=== PATIENT | female | born 1990 | race Asian ===

== ENCOUNTER 2023-09-08 01:56 | Inpatient (IN) ==
[2023-09-08] MEDS ORDERED: LIDOCAINE 1% LOCAL 20 ML VIAL INFIL PRN (02:41)
[2023-09-08] MEDS ORDERED: CALCIUM CARBONATE 500 MG CHEWABLE TAB PO PRN (02:41)
[2023-09-08] MEDS ORDERED: ACETAMINOPHEN 500 MG TAB PO PRN (02:41)
--- NOTE | 2023-09-08 02:45 | History & Physical Report ---
Date of Service September 08, 2023 Assessment & Plan (1) Supervision of normal first : (2) SROM (spontaneous rupture of membranes): Plan 33-year-old G1, P0 currently at 38 weeks 0 days gestational age presents with spontaneous rupture of membranes. Noted to be grossly ruptured on exam. 1. Fetus: Category 1 tracing 2. Labor: Grossly ruptured on exam. Desiring time for spontaneous labor. Will start oxytocin at approximately 6 hours post rupture if not clearly in labor. 3. GBS negative 4. Vitals within normal limits History of Present Illness Primary Care Provider: NO PCP 33-year-old G1, P0 currently at 38 weeks 0 days gestational age presents with leakage of fluid. Reports 2 gushes of watery type fluid with continuous nonstop watery discharge occurring. Patient noted to be grossly ruptured on exam. Denying regular or painful contractions. No vaginal bleeding and noting good movement. has been uncomplicated to date. OB Labs: Blood Type A Positive 02/02/23 Antibody Screen NEGATIVE 02/02/23 Hemoglobin 11.3 g/dl (12.0-16.0) L 06/30/23 Hematocrit 33.1 % (37.0-47.0) L 06/30/23 Mean Corpuscular Volume 83.2 fL (80.0-100.0) 02/02/23 Platelet Count 352 K/uL (130-400) 02/02/23 Rubella IgG Antibody Non Immune (Immune) L 02/02/23 Rapid Plasma Reagin Nonreactive (Nonreactive) 02/02/23 Hepatitis B Surface Antigen. NON-REACTIVE (NON-REACTIVE) 02/02/23 Hepatitis C Antibody (EIA) NON-REACTIVE (NON-REACTIVE) 02/02/23 HIV (1&2) Ag and Ab Confirmation NON-REACTIVE (NON-REACTIVE) 02/02/23 Glucose 1 Hour 50 gm Load 172 mg/dl (70-130) H 04/08/23 Maternal Serum Alpha Fetoprotein 24.8 ng/mL 04/08/23 OB Optional Labs: Chlamydia trachomatis RNA Not Detected (NotDetected) 02/02/23 Neisseria gonorrhoeae RNA Not Detected (NotDetected) 02/02/23 Alpha Fetoprotein Triple Screen SEE NOTE 04/08/23 Labs Reviewed: low risk cfdna - sln horizon 14 - sln neg afp - sln passed 2 hr gtt x 2--akh Allergies Allergy/AdvReac Type Severity Reaction Status Date / Time No Known Allergies Allergy Verified 09/02/23 11:04 Home Medications Medication Instructions Recorded Confirmed Type 21-iron fu-folic acid 1 tab PO DAILY 01/29/23 09/08/23 History [ Complete] Patient History Medical History (Updated 09/08/23 @ 07:28 by Ugo Johnson MD) Patient denies significant medical history Surgical History S/P LASIK surgery Family History (Updated 01/29/23 @ 14:06 by Anupama Lynn) Aunt Breast cancer Denies family history of Ovarian cancer Colorectal cancer Social History (Updated 01/29/23 @ 14:07 by Anupama Lynn) Smoking Status: Never smoker Do You Dip or Chew Tobacco: No; Hx Alcohol Use: No Hx Substance Use: No Preferred Language: Bengali Puffer Tender Required: No Beliefs That Will Affect Care: None marital status: marital status details: Rhoda Ahumada(34) [phone] Current Living Situation: Spouse Current Living Situation Comment: lives with spouse, dog current occupational status: employed current occupation: [employer] Other Information That Helps Us Care for You: No Physical Exam Genitourinary: Manual OB Exam: + cervical dilation 1 cm, + cervical effacement (T), + station high and + amniotic fluid (Grossly ruptured) clear OB Exam Monitor Tracing: + external FHT monitor used, + external uterine monitor used and + category I; no normal FHT variability, no early decelerations present, no late decelerations present and no variable decelerations Exam per nurse Results & Data Vital Signs (Past 12 Hours) Vital Signs Temp Pulse Resp BP 09/08/23 02:14 37.5 C 18 09/08/23 02:10 81 139/75 Coding Level of Care Code None Diagnoses Encounter for supervision of normal first in third trimester Z34.03 Trimester: third trimester SROM (spontaneous rupture of membranes) (1) Supervision of normal first Trimester: third trimester Qualified Code(s): Z34.03 - Encounter for supervision of normal first , third trimester
[2023-09-08 03:17] LABS: Hematocrit (blood only) 34.4 % (37.0-47.0); Hemoglobin 12.1 g/dl (12.0-16.0); Mean Corpuscular Hemoglobin 29.9 pg (25.0-34.0); Mean Corpuscular Hgb Conc 35.2 g/dL (32.0-36.0); Mean Corpuscular Volume 84.9 fL (80.0-100.0); Mean Platelet Volume 10.1 fL (9.4-12.4); Platelet Count 206 K/uL (130-400); RDW Coefficient of Variation 13.5 % (11.5-14.5); RDW Standard Deviation 41.8 fL (36.4-46.3); Red Blood Count 4.05 M/uL (4.20-5.40); White Blood Count 10.54 K/ul (4.8-10.8)
[2023-09-08] MEDS: OXYTOCIN 30 UNITS/NSS 30 UNITS/500 ML BAG IV PRN ×2 (07:45→21:07)
[2023-09-08] MEDS: LACTATED RINGER'S 1,000 ML IV PRN (07:45)
--- NOTE | 2023-09-08 09:01 | Communication Note ---
Date of Service: September 08, 2023 coming onto call. met pt and she is aware i am taking over care. fhts categ 1. pitocin recently started and pt still comfortable, ctx q4 min. pt denies ?s or concerns at this time.
[2023-09-08] MEDS ORDERED: NALOXONE HCL 1 MG in SODIUM CHLORIDE 0.9% 1,000 ML IV PRN (12:43)
[2023-09-08] MEDS ORDERED: diphenhydrAMINE 50 MG/ML VIAL IV PRN (12:43)
[2023-09-08] MEDS ORDERED: ROPIVACAINE 0.5% PF 5 MG/ML 20 ML VIAL EPI PRN (12:43)
[2023-09-08] MEDS ORDERED: fentaNYL citrate PF 100 MCG/2 ML VIAL EPI PRN (12:43)
[2023-09-08] MEDS ORDERED: NALOXONE HCL 0.4 MG/1 ML VIAL/CARP IV PRN (12:43)
[2023-09-08] MEDS ORDERED: LIDOCAINE 2% MPF LOCAL 5 ML VIAL EPI PRN (12:43)
[2023-09-08] MEDS ORDERED: SODIUM CHLORIDE 0.9% PF INJ 10 ML VIAL EPI PRN (12:43)
[2023-09-08] MEDS ORDERED: BUPIVACAINE 0.25% PF 30 ML VIAL EPI PRN (12:43)
[2023-09-08] MEDS ORDERED: ePHEDrine sulfate 50 MG/ML AMP IV PRN (12:43)
[2023-09-08] MEDS ORDERED: ONDANSETRON INJ 2 MG/ML 2 ML VIAL IV PRN (12:43)
[2023-09-08] MEDS ORDERED: NALBUPHINE HCL 5 MG in SYRINGE 0 ML IV PRN (12:43)
[2023-09-08] MEDS: BUPIVACAINE 0.25% PF 30 ML VIAL ONE (13:14)
[2023-09-08] MEDS: fentaNYL citrate PF 100 MCG/2 ML VIAL ONE (13:14)
[2023-09-08] MEDS: LIDOCAINE 2%/EPINEPHRINE 1:200,000 20 ML PF ONE (13:15)
[2023-09-08] MEDS: fentANYL 2 MCG/ML BUPIVacaine 0.125%-NSS 100ML BAG ONE (13:16)
[2023-09-08] MEDS: SODIUM CHLORIDE 0.9% PF INJ 10 ML VIAL ONE (13:17)
[2023-09-08] MEDS: SODIUM CHLORIDE 0.9% PF INJ 10 ML VIAL EPI STA (13:36)
[2023-09-08] MEDS: BUPIVACAINE 0.25% PF 30 ML VIAL EPI STA (13:36)
[2023-09-08] MEDS: LIDOCAINE 2%/EPINEPHRINE 1:200,000 20 ML PF EPI STA (13:36)
[2023-09-08] MEDS: fentaNYL citrate PF 100 MCG/2 ML VIAL EPI STA (13:36)
[2023-09-08] MEDS: ePHEDrine sulfate 50 MG/ML AMP ONE (15:03)
--- NOTE | 2023-09-08 15:43 | Labor Progress Brief Note ---
Date of Service September 08, 2023 Subjective pt comfortable with epidural and pit at 12 Assessment & Plan (1) Encounter for induction of labor: (2) PROM (premature rupture of membranes): Plan Patient making progress in latent phase. c/w pitocin. perhaps arom forebag will help with cephalic more against cx now. will reeval ongoing. fhts categ 1. Admission and Anticipated Discharge Date Admission Date: September 08, 2023 Physical Exam Constitutional: WD/WN, vitals as above Genitourinary: Manual OB Exam: + cervical dilation (3), + cervical effacement 80%, + station -2 and + amniotic fluid (arom forebag, cephalic more against cx. ) clear OB Exam Monitor Tracing: + external FHT monitor used, + external uterine monitor used (q2-3 ), + category I and + normal FHT variability Results & Data Vital Signs (Past 12 Hours) Vital Signs Temp Pulse Resp BP Pulse Ox 09/08/23 15:38 73 134/80 09/08/23 15:34 76 97 09/08/23 15:29 82 96 09/08/23 15:24 79 96 09/08/23 15:22 75 20 130/83 09/08/23 15:19 78 96 09/08/23 15:14 80 97 09/08/23 15:09 96 09/08/23 15:09 75 09/08/23 15:09 75 131/85 09/08/23 15:04 80 96 09/08/23 15:00 18 09/08/23 15:00 98.2 F 18 09/08/23 14:59 76 97 09/08/23 14:54 77 98 09/08/23 14:49 72 96 09/08/23 14:48 71 130/75 09/08/23 14:44 70 96 09/08/23 14:43 68 126/71 09/08/23 14:39 73 96 09/08/23 14:37 73 130/84 09/08/23 14:34 73 97 09/08/23 14:32 70 127/76 09/08/23 14:30 16 09/08/23 14:30 16 09/08/23 14:29 73 96 09/08/23 14:28 75 128/75 09/08/23 14:24 72 96 09/08/23 14:23 68 128/76 06 14:19 72 129/76 97 09/08/23 14:15 20 09/08/23 14:15 20 09/08/23 14:14 74 97 09/08/23 14:12 73 127/80 09/08/23 14:09 75 97 09/08/23 14:07 75 128/81 06 14:04 70 98 09/08/23 14:02 72 129/81 09/08/23 14:00 18 09/08/23 14:00 18 09/08/23 13:59 71 97 09/08/23 13:58 68 127/77 09/08/23 13:54 74 97 09/08/23 13:53 71 126/76 09/08/23 13:49 98 09/08/23 13:49 70 09/08/23 13:49 70 124/74 09/08/23 13:45 16 09/08/23 13:44 70 98 09/08/23 13:43 72 131/73 09/08/23 13:39 74 97 09/08/23 13:38 74 121/71 09/08/23 13:34 75 97 09/08/23 13:33 74 127/68 09/08/23 13:30 18 09/08/23 13:30 18 09/08/23 13:29 97 09/08/23 13:29 76 09/08/23 13:29 80 126/71 09/08/23 13:24 78 97 09/08/23 13:22 80 125/67 09/08/23 13:20 78 124/66 09/08/23 13:19 75 97 06 13:18 80 125/63 09/08/23 13:16 80 128/64 09/08/23 13:15 18 09/08/23 13:15 18 09/08/23 13:14 83 130/67 98 09/08/23 13:12 84 131/64 09/08/23 13:11 78 140/70 09/08/23 13:10 98.2 F 09/08/23 13:09 83 98 09/08/23 13:04 77 98 09/08/23 12:46 73 127/78 09/08/23 11:47 74 129/77 09/08/23 11:00 18 06/05/24 11:00 98.6 F 18 09/08/23 10:46 78 121/74 09/08/23 09:46 74 129/75 09/08/23 09:00 98.4 F 09/08/23 08:46 79 128/81 09/08/23 07:46 88 143/85 H 09/08/23 07:00 98.6 F 18 09/08/23 07:00 83 121/63 09/08/23 05:41 76 111/64 09/08/23 05:40 18 09/08/23 05:40 98.8 F 18 Coding Level of Care Code None Diagnoses Encounter for induction of labor Z34.90 PROM (premature rupture of membranes) O42.90
--- NOTE | 2023-09-08 18:08 | Labor Progress Brief Note ---
Date of Service September 08, 2023 Subjective resting, no pain, pit at 12 Assessment & Plan (1) PROM (premature rupture of membranes): (2) Encounter for induction of labor: Plan great cx change. anticip 2nd stage soon. fhts categ 1. Admission and Anticipated Discharge Date Admission Date: September 08, 2023 Physical Exam Constitutional: WD/WN, vitals as above Genitourinary: Manual OB Exam: + cervical dilation (rim), + cervical effac ement 100% and + station + 1 OB Exam Monitor Tracing: + external FHT monitor used, + external uterine monitor used (q2 ), + category I and + normal FHT variability Results & Data Vital Signs (Past 12 Hours) Vital Signs Temp Pulse Resp BP Pulse Ox 09/08/23 18:04 85 96 09/08/23 17:59 79 94 09/08/23 17:54 84 94 09/08/23 17:52 81 133/74 09/08/23 17:49 82 95 09/08/23 17:44 82 95 09/08/23 17:39 81 95 09/08/23 17:38 76 20 136/74 09/08/23 17:34 81 95 09/08/23 17:29 81 94 09/08/23 17:24 84 95 09/08/23 17:23 78 20 129/75 09/08/23 17:19 89 96 09/08/23 17:14 90 95 09/08/23 17:09 78 95 09/08/23 17:07 75 128/71 09/08/23 17:04 84 96 09/08/23 17:00 20 09/08/23 17:00 98.8 F 20 09/08/23 16:59 79 94 09/08/23 16:55 79 94 09/08/23 16:54 78 95 09/08/23 16:52 74 124/71 09/08/23 16:50 76 94 09/08/23 16:49 77 95 09/08/23 16:44 77 96 09/08/23 16:39 79 96 09/08/23 16:38 80 137/75 09/08/23 16:34 76 95 09/08/23 16:31 78 94 09/08/23 16:29 83 95 09/08/23 16:24 79 95 09/08/23 16:23 76 151/88 H 06/05/24 16:20 76 94 06 16:19 79 95 09/08/23 16:14 80 95 09/08/23 16:09 75 95 09/08/23 16:08 76 131/74 06 16:04 77 96 09/08/23 15:59 78 96 06 15:54 76 96 09/08/23 15:53 74 20 131/78 09/08/23 15:49 75 96 09/08/23 15:44 75 96 06 15:39 75 96 09/08/23 15:38 73 134/80 09/08/23 15:34 76 97 09/08/23 15:29 82 96 09/08/23 15:24 79 96 09/08/23 15:22 75 20 130/83 09/08/23 15:19 78 96 09/08/23 15:14 80 97 09/08/23 15:09 96 09/08/23 15:09 75 09/08/23 15:09 75 131/85 09/08/23 15:04 80 96 06 15:00 18 09/08/23 15:00 98.2 F 18 09/08/23 14:59 76 97 09/08/23 14:54 77 98 09/08/23 14:49 72 96 09/08/23 14:48 71 130/75 09/08/23 14:44 70 96 09/08/23 14:43 68 126/71 09/08/23 14:39 73 96 09/08/23 14:37 73 130/84 09/08/23 14:34 73 97 06 14:32 70 127/76 09/08/23 14:30 16 09/08/23 14:30 16 09/08/23 14:29 73 96 09/08/23 14:28 75 128/75 09/08/23 14:24 72 96 09/08/23 14:23 68 128/76 09/08/23 14:19 72 129/76 97 09/08/23 14:15 20 09/08/23 14:15 20 09/08/23 14:14 74 97 06 14:12 73 127/80 09/08/23 14:09 75 97 09/08/23 14:07 75 128/81 06/08/26 14:04 70 98 09/08/23 14:02 72 129/81 06 14:00 18 09/08/23 14:00 18 09/08/23 13:59 71 97 09/08/23 13:58 68 127/77 09/08/23 13:54 74 97 09/08/23 13:53 71 126/76 09/08/23 13:49 98 09/08/23 13:49 70 06 13:49 70 124/74 09/08/23 13:45 16 09/08/23 13:44 70 98 09/08/23 13:43 72 131/73 09/08/23 13:39 74 97 09/08/23 13:38 74 121/71 09/08/23 13:34 75 97 09/08/23 13:33 74 127/68 09/08/23 13:30 18 09/08/23 13:30 18 09/08/23 13:29 97 09/08/23 13:29 76 06 13:29 80 126/71 09/08/23 13:24 78 97 06 13:22 80 125/67 09/08/23 13:20 78 124/66 09/08/23 13:19 75 97 09/08/23 13:18 80 125/63 09/08/23 13:16 80 128/64 09/08/23 13:15 18 09/08/23 13:15 18 09/08/23 13:14 83 130/67 98 09/08/23 13:12 84 131/64 09/08/23 13:11 78 140/70 09/08/23 13:10 98.2 F 09/08/23 13:09 83 98 09/08/23 13:04 77 98 0605 12:46 73 127/78 09/08/23 11:47 74 129/77 09/08/23 11:00 18 09/08/23 11:00 98.6 F 18 09/08/23 10:46 78 121/74 0605 09:46 74 129/75 09/08/23 09:00 98.4 F 09/08/23 08:46 79 128/81 06 07:46 88 143/85 H 09/08/23 07:00 98.6 F 18 09/08/23 07:00 83 121/63 Coding Level of Care Code None Diagnoses PROM (premature rupture of membranes) O42.90 Encounter for induction of labor Z34.90
[2023-09-08] MEDS: fentANYL 2 MCG/ML BUPIVacaine 0.125%-NSS 100ML BAG EPI PRN (19:30)
[2023-09-08] MEDS: miSOPROStoL 200 MCG TAB PR ONE (20:46)
[2023-09-08] MEDS: CARBOPROST TROMETHAMINE 250 MCG/ML AMPUL IM ONE ×2 (20:48→21:03)
--- NOTE | 2023-09-08 21:17 | Delivery Summary ---
Vaginal Delivery Summary Date of Service September 08, 2023 Vaginal Delivery Summary The patient dilated to complete and pushed to deliver a viable female Apgars 8 and 9 via over intact perineum. Mouth and nose bulb suctioned at perineum. Shoulders and body delivered with ease. Infant was vigorous and crying at . Cord clamped at 40 seconds of life and infant to maternal abdomen where the cord was then doubly clamped and cut. Placenta delivered spontaneously and intact, three-vessel cord. Hemostasis not achieved with dilute pitocin and uterine massage and drainage of the bladder for approximately 200 cc under sterile conditions. Uterus swept x 2, no retained products. Cytotec 800mcg per rectum. BP checked, and IM hemabate given. Uterine tone improving. IM hemabate repeated in 15min. Bleeding improving. Laceration of vagina reapproximated with 3-0 vicryl and periclitoral laceration reapproximated with 4-0 vicryl. Hemostasis of repaired lacerations noted. Cervix and sulci intact. QBL 1085 cc. Mother and baby stable in recovery. Will plan 3 doses antibiotics due to uterine exploration and explained all to pt and partner. They deny questions. [facility] Vaginal Delivery Charge Delivery Type Details:
[2023-09-08] MEDS ORDERED: HYDROCORTISONE ACETATE 25 MG SUPP PR PRN (21:34)
[2023-09-08] MEDS ORDERED: oxyCODONE/ACETAMINOPHEN 5mg/325mg TAB PO PRN (21:34)
[2023-09-08] MEDS ORDERED: bisacodyL 10 MG SUPP PR PRN (21:34)
[2023-09-08] MEDS ORDERED: OXYTOCIN 30 UNITS/NSS 30 UNITS/500 ML BAG IV PRN (21:34)
[2023-09-08] MEDS ORDERED: ACETAMINOPHEN 325 MG TAB PO PRN (21:34)
[2023-09-08] MEDS: DIPHTHER/TETAN/PERTUS Vaccine (Tdap, Adol/Adult) 0.5mL IM ONE (21:37)
[2023-09-08] MEDS: OXYTOCIN 20 UNITS/LR 1,002 ML IV SCH (21:45)
[2023-09-08] MEDS: ceFAZolin 2000MG 2,000 MG/15 ML SYR IV SCH (22:12)
[2023-09-08] MEDS: BENZOCAINE 20% SPRY 85 APPLN/85 GM CAN EXT PRN (23:09)
--- NOTE | 2023-09-09 06:09 | Obstetrical Progress Note ---
Date of Service September 09, 2023 Assessment & Plan (1) Encounter for care and examination after delivery: Plan 33 yo post- day 1 s/p Doing well this morning Vital signs reviewed Rubella non immune, will give MMR BGT: A + Encourage breast feeding Continue post care Admission and Anticipated Discharge Date Admission Date: September 08, 2023 Supervising Physician Co-Signing Physician Notes Resident Physician Supervision Note: I was present with Dr. Caceres during the history and exam. I discussed the case with the resident and agree with the findings and plan as documented in the note. Any exceptions or clarifications are listed here: pt doing well, eating, voiding, ambulating, lochia small. abd soft ff 2 down nt, ext nt calves. ppd#1 s/p , with pph, hgb pending. no evidence of ongoing bleeding. routine pp care. mmr ordered. bottle feeding, but plans to try to nurse. Documented By: Berenice Greer MD, FACOG Subjective 33 yo post- day 1 s/p Ambulation: ambulating normally Voiding: no voiding problems Passing Gas:: Yes Diet Tolerance:: regular diet Lochia:: Small Feeding Type: bottle feeding Current Pain Level: moderate Resting comfortably this AM in NAD. Denies MARADIAGA, CP, SOB, N/V/D, LE pain/swelling. Review of Systems Review of Systems: as per HPI Physical Exam Physical Exam: General: patient resting comfortably, NAD, non-toxic in appearance, AA&O x 4, answers questions appropriately. Heart: +S1/S2, regular, no m/r/g Lungs: equal air entry bilaterally, no rales/rhonchi/wheezes Abd: +BS, soft, NT/ND, uterine fundus firm at umbilicus Ext: warm, no edema Neuro: nonfocal, patient AA&O x 4, speech intact, no facial droop, moving all extremities on command. Results & Data Vital Signs (Past 12 Hours) Vital Signs Temp Pulse Pulse Resp BP BP Pulse Ox 09/09/23 04:00 36.8 C 94 H 16 117/77 99 09/09/23 00:40 36.8 C 96 H 16 114/70 99 09/09/23 00:10 18 09/08/23 23:57 103 H 130/78 06/0524 23:54 103 H 98 06/0524 23:52 100 H 128/82 06/0524 23:49 105 H 97 05 23:47 97 H 130/78 0605 23:44 101 H 97 09/08/23 23:42 100 H 134/82 06/0524 23:39 107 H 97 /08/26 23:37 102 H 127/73 06/0524 23:34 103 H 97 06/05 23:32 94 H 127/77 06/0524 23:29 102 H 97 06/05 23:27 101 H 132/82 06/0524 23:24 100 H 97 06/05 23:22 96 H 131/83 /05 23:19 104 H 97 09/08/23 23:17 100 H 127/82 /05 23:14 105 H 96 05 23:12 100 H 123/81 0605 23:09 105 H 97 05 23:07 99 H 129/85 06/05 23:05 18 09/08/23 23:04 109 H 97 05 23:02 102 H 124/84 05 22:59 107 H 97 09/08/23 22:57 107 H 131/82 06/05 22:54 108 H 98 /08/26 22:52 98 H 126/81 /0524 22:49 112 H 97 06/05 22:47 117 H 118/85 06/05 22:44 111 H 97 06/0524 22:42 112 H 122/86 /05 22:39 106 H 97 06/0524 22:37 106 H 115/81 06/0524 22:35 18 09/08/23 22:34 111 H 97 /0524 22:32 115 H 128/83 06/0524 22:29 119 H 96 06/0524 22:27 117 H 139/97 06/0524 22:24 123 H 97 06/0524 22:22 122 H 134/93 06/0524 22:19 116 H 97 06/05 22:17 105 H 125/84 06/05/24 22:14 115 H 96 09/08/23 22:12 117 H 119/81 09/08/23 22:09 119 H 98 09/08/23 22:07 112 H 123/81 09/08/23 22:05 18 09/08/23 22:04 119 H 97 09/08/23 22:02 118 H 120/78 09/08/23 21:59 125 H 96 09/08/23 21:57 129 H 124/77 09/08/23 21:55 125 H 121/73 09/08/23 21:54 123 H 96 09/08/23 21:50 18 09/08/23 21:49 132 H 97 09/08/23 21:47 129 H 125/69 09/08/23 21:44 130 H 96 09/08/23 21:42 129 H 133/83 09/08/23 21:39 122 H 96 09/08/23 21:37 116 H 135/86 09/08/23 21:35 18 09/08/23 21:34 115 H 96 09/08/23 21:33 126 H 137/84 09/08/23 21:29 126 H 95 09/08/23 21:27 129 H 132/85 09/08/23 21:24 121 H 97 09/08/23 21:22 116 H 131/85 09/08/23 21:20 18 09/08/23 21:19 119 H 96 09/08/23 21:17 117 H 125/80 09/08/23 21:14 119 H 96 09/08/23 21:12 120 H 122/77 09/08/23 21:09 123 H 97 09/08/23 21:07 120 H 121/78 09/08/23 21:05 36.8 C 18 09/08/23 21:04 94 09/08/23 21:04 105 H 09/08/23 21:04 110 H 126/90 09/08/23 21:02 110 H 127/68 09/08/23 20:59 113 H 96 09/08/23 20:54 116 H 96 09/08/23 20:52 122 H 135/65 09/08/23 20:49 126 H 97 09/08/23 20:46 129 H 130/74 09/08/23 20:44 123 H 96 06/05/24 20:39 118 H 97 09/08/23 20:34 112 H 97 09/08/23 20:29 110 H 97 09/08/23 20:24 95 H 93 09/08/23 20:23 88 144/84 H 09/08/23 20:20 18 09/08/23 20:20 18 09/08/23 20:19 86 96 09/08/23 20:14 79 96 09/08/23 20:13 80 89 L 09/08/23 20:09 81 96 09/08/23 20:08 75 90 09/08/23 20:07 72 134/71 09/08/23 20:04 82 96 09/08/23 20:01 79 90 09/08/23 20:00 18 09/08/23 20:00 18 09/08/23 19:59 81 93 09/08/23 19:54 95 09/08/23 19:54 79 09/08/23 19:54 74 90 09/08/23 19:52 77 138/75 09/08/23 19:49 83 94 09/08/23 19:44 79 95 09/08/23 19:42 76 89 L 09/08/23 19:39 82 97 09/08/23 19:37 78 135/80 09/08/23 19:36 79 89 L 09/08/23 19:34 79 89 L 09/08/23 19:30 77 18 89 L 09/08/23 19:29 77 90 09/08/23 19:24 82 96 09/08/23 19:23 76 140/81 09/08/23 19:21 81 91 09/08/23 19:19 79 97 09/08/23 19:16 79 91 09/08/23 19:14 79 96 09/08/23 19:09 84 97 09/08/23 19:08 77 141/79 H 09/08/23 19:06 83 90 09/08/23 19:05 18 09/08/23 19:05 37.1 C 18 09/08/23 19:04 79 95 09/08/23 19:02 37.1 C 18 09/08/23 19:02 09/08/23 18:59 78 94 09/08/23 18:54 84 99 09/08/23 18:52 81 154/77 H 09/08/23 18:49 81 99 09/08/23 18:44 82 96 09/08/23 18:43 78 152/81 H 91 09/08/23 18:42 83 176/90 H 09/08/23 18:39 83 98 09/08/23 18:38 81 166/89 H 09/08/23 18:34 79 98 09/08/23 18:30 20 09/08/23 18:30 20 09/08/23 18:29 83 96 09/08/23 18:24 89 96 09/08/23 18:23 82 162/96 H 09/08/23 18:19 82 96 09/08/23 18:14 85 96 09/08/23 18:09 85 158/89 H 97 09/08/23 18:08 86 162/95 H O2 Del Method 09/09/23 04:00 Room Air 09/09/23 00:40 Room Air 09/09/23 00:10 09/08/23 23:57 09/08/23 23:54 09/08/23 23:52 09/08/23 23:49 09/08/23 23:47 09/08/23 23:44 09/08/23 23:42 09/08/23 23:39 09/08/23 23:37 09/08/23 23:34 09/08/23 23:32 09/08/23 23:29 09/08/23 23:27 09/08/23 23:24 09/08/23 23:22 09/08/23 23:19 09/08/23 23:17 09/08/23 23:14 09/08/23 23:12 09/08/23 23:09 09/08/23 23:07 09/08/23 23:05 09/08/23 23:04 09/08/23 23:02 09/08/23 22:59 09/08/23 22:57 09/08/23 22:54 09/08/23 22:52 09/08/23 22:49 09/08/23 22:47 09/08/23 22:44 09/08/23 22:42 09/08/23 22:39 09/08/23 22:37 09/08/23 22:35 09/08/23 22:34 09/08/23 22:32 09/08/23 22:29 09/08/23 22:27 09/08/23 22:24 09/08/23 22:22 09/08/23 22:19 09/08/23 22:17 09/08/23 22:14 09/08/23 22:12 09/08/23 22:09 09/08/23 22:07 09/08/23 22:05 09/08/23 22:04 09/08/23 22:02 09/08/23 21:59 09/08/23 21:57 09/08/23 21:55 09/08/23 21:54 09/08/23 21:50 09/08/23 21:49 09/08/23 21:47 09/08/23 21:44 09/08/23 21:42 09/08/23 21:39 09/08/23 21:37 09/08/23 21:35 09/08/23 21:34 09/08/23 21:33 09/08/23 21:29 09/08/23 21:27 09/08/23 21:24 09/08/23 21:22 09/08/23 21:20 09/08/23 21:19 09/08/23 21:17 09/08/23 21:14 09/08/23 21:12 09/08/23 21:09 09/08/23 21:07 09/08/23 21:05 09/08/23 21:04 09/08/23 21:04 09/08/23 21:04 09/08/23 21:02 09/08/23 20:59 09/08/23 20:54 09/08/23 20:52 09/08/23 20:49 09/08/23 20:46 09/08/23 20:44 09/08/23 20:39 09/08/23 20:34 09/08/23 20:29 09/08/23 20:24 09/08/23 20:23 09/08/23 20:20 09/08/23 20:20 09/08/23 20:19 09/08/23 20:14 09/08/23 20:13 09/08/23 20:09 09/08/23 20:08 09/08/23 20:07 09/08/23 20:04 09/08/23 20:01 09/08/23 20:00 09/08/23 20:00 09/08/23 19:59 09/08/23 19:54 09/08/23 19:54 09/08/23 19:54 09/08/23 19:52 09/08/23 19:49 09/08/23 19:44 09/08/23 19:42 09/08/23 19:39 09/08/23 19:37 09/08/23 19:36 09/08/23 19:34 09/08/23 19:30 09/08/23 19:29 09/08/23 19:24 09/08/23 19:23 09/08/23 19:21 09/08/23 19:19 09/08/23 19:16 09/08/23 19:14 09/08/23 19:09 09/08/23 19:08 09/08/23 19:06 09/08/23 19:05 09/08/23 19:05 09/08/23 19:04 09/08/23 19:02 09/08/23 19:02 Room Air 09/08/23 18:59 09/08/23 18:54 09/08/23 18:52 09/08/23 18:49 09/08/23 18:44 09/08/23 18:43 09/08/23 18:42 09/08/23 18:39 09/08/23 18:38 09/08/23 18:34 09/08/23 18:30 09/08/23 18:30 09/08/23 18:29 09/08/23 18:24 09/08/23 18:23 09/08/23 18:19 09/08/23 18:14 09/08/23 18:09 09/08/23 18:08 Resident Activity Tracking Resident Involvement: Resident Care Provided Care Provided: OB Delivery
--- NOTE | 2023-09-09 07:37 | Anesthesia Procedure Note ---
Date of Service September 09, 2023 Anesthesia Post Epidural Note Vital Signs Vital Signs: Temp Pulse Resp BP Pulse Ox O2 Del Method 98.2 F 94 H 16 117/77 99 Room Air 09/09/23 04:00 09/09/23 04:00 09/09/23 04:00 09/09/23 04:00 09/09/23 04:00 09/09/23 04:00 Pain Intensity Abdomen: Pain Intensity: 2 Notes Mental Status: alert / awake / arousable and participated in evaluation Nausea / Vomiting: adequately controlled Pain: adequately controlled Airway Patency, RR, SpO2: stable & adequate BP & HR: stable & adequate Hydration State: stable & adequate Neuraxial Anesthesia: was administered and sensory block is resolving Anesthetic Complications: no major complications apparent and Pt Satisfied with anesthetic care Epidural: Removed without complications and With tip intact
[2023-09-09 08:26] LABS: Hematocrit (blood only) 25.9 % (37.0-47.0); Hemoglobin 8.9 g/dl (12.0-16.0)
[2023-09-09] MEDS: IBUPROFEN 600 MG TAB PO PRN (08:36)
[2023-09-09] MEDS: PRENATAL VITAMIN 1 TAB PO SCH (08:36)
[2023-09-09] MEDS: DOCUSATE SODIUM 100 MG CAP PO SCH (08:36)
[2023-09-09] MEDS: MEASLES, MUMPS & RUBELLA VIRUS VACCINE (MMR) 0.5ML VIAL SQ ONE (14:51)
--- NOTE | 2023-09-10 06:21 | Obstetrical Progress Note ---
Date of Service September 10, 2023 Assessment & Plan (1) Encounter for care and examination after delivery: Plan 33 yo post- day 2 s/p Doing well this morning Vital signs reviewed Rubella non immune, will give MMR BGT: A + Hgb: 8.9 Encourage breast feeding Discharge home today, instructions reviewed Follow up in 6 weeks in office Admission and Anticipated Discharge Date Admission Date: September 08, 2023 Supervising Physician Co-Signing Physician Notes Resident Physician Supervision Note: I interviewed and examined the patient. Discussed with Dr. Cheko Rizvi and agree with findings and plan as documented in the note. Any exceptions or clarifications are listed here: PPD#2 doing well. DC home, reviewed instructions. Followup 6w PP. Documented By: Allyn Lagunas, Subjective 33 yo post- day s s/p with PPH Ambulation: ambulating normally Voiding: no voiding problems Passing Gas: Yes Diet Tolerance: regular diet Lochia:: Small Feeding Type: bottle feeding, will try breast feeding Current Pain Level: moderate Resting comfortably this AM in NAD. Denies MARADIAGA, CP, SOB, N/V/D, LE pain/swelling. Review of Systems Review of Systems: as per HPI Physical Exam Physical Exam: General: patient resting comfortably, NAD, non-toxic in appearance, AA&O x 4, answers questions appropriately. Heart: +S1/S2, regular, no m/r/g Lungs: equal air entry bilaterally, no rales/rhonchi/wheezes Abd: +BS, soft, NT/ND, uterine fundus firm at umbilicus Ext: warm, no edema Neuro: nonfocal, patient AA&O x 4, speech intact, no facial droop, moving all extremities on command. Results & Data Vital Signs (Past 12 Hours) Vital Signs Temp Pulse Resp BP Pulse Ox O2 Del Method 09/10/23 01:30 36.5 C 103 H 18 123/73 96 Room Air 09/09/23 19:35 36.7 C 97 H 18 121/70 96 Room Air Resident Activity Tracking Resident Involvement: Resident Care Provided Care Provided: OB Delivery
[2023-09-10 10:24] VITALS: BP 129/74; PULSE 96; RESP 16; TEMP 97.9; O2SAT 98
== END 2023-09-10 18:20 | disposition home or self-care (01) | DRG 768 ==
LOC: OPB 01:56 → 4S1 01:58 → 4E2 09-09 00:25
DX: O42.92 Full-term premature rupture of membranes, unspecified as to length of time between rupture and onset of labor; Z37.0 Single live birth; O70.0 First degree perineal laceration during delivery; Z3A.38 38 weeks gestation of pregnancy